=== PATIENT | male | born 1965 | race African-American/Black ===

== ENCOUNTER 2020-08-12 02:38 | Emergency (ER) | payer OTHER ==
[2020-08-25 20:33] LABS: PLATELET COUNT 220 K/uL (142-355)
[2020-08-25 20:37] LABS: POTASSIUM 3.7 mmol/L (3.6-5.2); SODIUM 136 mmol/L (136-145)
== END 2020-08-12 04:30 | disposition short-term general hospital (02) ==
LOC: ED 02:38
PROVIDERS: Emergency Medicine
PROC: 0HQGXZZ Repair Left Hand Skin, External Approach (ICD-10-PCS; principal; 2020-08-12)
DX: S12.191A Other nondisplaced fracture of second cervical vertebra, initial encounter for closed fracture (principal); F10.129 Alcohol abuse with intoxication, unspecified; Y90.7 Blood alcohol level of 200-239 mg/100 ml; S70.11XA Contusion of right thigh, initial encounter; S61.211A Laceration without foreign body of left index finger without damage to nail, initial encounter; S01.112A Laceration without foreign body of left eyelid and periocular area, initial encounter; S30.1XXA Contusion of abdominal wall, initial encounter; V59.3XXA Occupant (driver) (passenger) of pick-up truck or van injured in unspecified nontraffic accident, initial encounter; Y92.89 Other specified places as the place of occurrence of the external cause
CPT/HCPCS: 36415; 80053; 80320; 82550; 82553; 84484; 85027; 85610; 85730; 90471; 90715; 96360; 99285